=== PATIENT | female | born 1985 | race Hispanic/Latino ===

== ENCOUNTER → 2019-04-02 | Outpatient (CLI) | payer OTHER | LOC: GMATM 16:41 | PROVIDERS: ATTEND Nurse Practitioner Family | DX: R00.0 Tachycardia, unspecified (principal) ==

== ENCOUNTER → 2019-04-03 | Outpatient (CLI) | payer OTHER | LOC: GMAM 08:50 | PROVIDERS: ATTEND Family Medicine | DX: D64.9 Anemia, unspecified (principal); R77.9 Abnormality of plasma protein, unspecified ==

== ENCOUNTER → 2019-04-10 | Outpatient (CLI) | payer OTHER | LOC: GMAM 11:29 | PROVIDERS: ATTEND Family Medicine | DX: H05.20 Unspecified exophthalmos (principal); D64.9 Anemia, unspecified ==

== ENCOUNTER → 2019-08-13 | Outpatient (CLI) | payer OTHER ==
--- NOTE | 2019-08-13 21:07 | US ---
EXAM DESCRIPTION: Liver: ULTRASOUND. CLINICAL HISTORY: GENERALIZED ABNORMAL RESULTS OF LIVER FUNCTION STUDIES COMPARISON: None. TECHNIQUE: Transabdominal scannin-dimensional and Doppler modes. FINDINGS: Gallbladder: normal size, shape, echogenicity; no intraluminal stones or sludge. No fluid around the gallbladder. No wall thickening. 2.7 mm. Non-tender with transducer pressure. Common bile duct: caliber 4.6 mm within normal limits. Liver: Heterogeneously increased echogenicity; contour liver capsule smooth where seen. No fluid around the liver. Intrahepatic biliary ducts normal caliber. Doppler hepatopedal flow portal vein. 9 mm caliber. Long axis right lobe 14.7 cm. Pancreas: normal size and echogenicity. Duct not seen. Right kidney: long axis measures 9.0 cm. Normal cortical echogenicity. Normal cortical thickness. No echogenic stones or hydronephrosis. Aorta proximal: 1.5 cm normal caliber. IMPRESSION: 1. Steatosis of the liver with normal vascularity and ducts. Smooth capsule with no ascites. Normal size. 2. Normal ultrasound of the gallbladder, common bile duct, pancreas, and right kidney. No ascites. Normal caliber of the proximal aorta and IVC. Electronically signed by: Andres Hernandez MD 08/13/2019 9:05 PM SEX THERAPIST
== END ==
LOC: US 07:49
PROVIDERS: ATTEND Family Medicine
DX: K76.0 Fatty (change of) liver, not elsewhere classified (principal)

== ENCOUNTER → 2019-08-15 | Outpatient (CLI) | payer OTHER | LOC: LAB.O 08:09 | PROVIDERS: ATTEND Obstetrics & Gynecology | DX: N92.6 Irregular menstruation, unspecified (principal); N97.9 Female infertility, unspecified ==

== ENCOUNTER → 2019-10-11 | Outpatient (CLI) | payer OTHER | LOC: LAB.O 08:43 | PROVIDERS: ATTEND Obstetrics & Gynecology | DX: N92.6 Irregular menstruation, unspecified (principal) ==